=== PATIENT | female | born 1945 | race Caucasian/White ===

== ENCOUNTER 2022-03-29 02:10 | Observation (INO) | payer MEDICARE, OTHER ==
[~2022-03-29] VITALS: Ht 154.9 cm; Wt 58.5 kg
[2022-03-29] VITALS (76 sets, daily range): BP systolic 67–150; BP diastolic 34–108
--- NOTE | 2022-03-29 02:15 | NUR ---
ARRIVAL TRAVELING FROM [place] WHICH IS WHERE SHE LIVES. TRAVELED FOR 7HRS YESTERDAY VIA CAR WITH FAMILY. THEN STOPPED IN [place] TO STAY AT [facility]. STARTED HAVING CHEST PAIN. PHONED FOR EMS. WHEN EMS ARRIVED EKG LOOKED TO BE AFIB RVR HR 160-170 PER EMS. EMS ADMINISTERED METOPROLOL 5MG IV, ASA 324MG PO, NITRO 0.4MG SL. UPON ARRIVAL TO ER HR-145 PER EKG. DENIES CHEST PAIN AT THIS TIME. ALERT AND ORIENTED X3. DAUGHTER AT BEDSIDE. DR. KENNEY AT BEDSIDE. AWAITING ORDERS AT THIS TIME.
[2022-03-29] MEDS ORDERED: CORDARONE ONE (02:35)
[2022-03-29] MEDS ORDERED: LANOXIN ONE (02:36)
[2022-03-29] MEDS ORDERED: NS 1000ML 1,000 ML ONE (02:37)
[2022-03-29] MEDS ORDERED: LANOXIN IV STA (02:48)
[2022-03-29] MEDS ORDERED: CORDARONE IV STA (02:48)
--- NOTE | 2022-03-29 02:50 | PCM.EKG ---
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
--- NOTE | 2022-03-29 02:50 | PCM.EKG ---
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
[2022-03-29] MEDS ORDERED: NEXTERONE 360 MG/200 ML BAG 200 ML IV ONE (02:51)
[2022-03-29 02:57] LABS: BASOPHIL # 0.1 10^3/uL (0.0-0.1); BASOPHIL % 0.8 % (0.0-0.2); EOSINOPHIL # 0.3 10^3/uL (0.0-0.2); EOSINOPHIL % 2.5 % (0.0-5.0); LYMPHOCYTES # 1.88 10^3/uL1 (1.0-4.8); LYMPHOCYTES % 18.2 % (24.0-44.0); MEAN CORP HGB 30.1 pg (26-34); MONOCYTES # 0.8 10^3/uL (0.3-0.8); MONOCYTES % 7.9 % (5.0-12.0); NEUTROPHIL # 7.3 10^3/uL (1.8-7.7); NEUTROPHILS % 70.4 % (41.0-85.0); PLATELET COUNT 277 10^3/uL (150-400); RED CELL DISTRIBUTION WIDTH 12.3 % (11.5-14.5)
[2022-03-29] MEDS ORDERED: NEXTERONE 360 MG/200 ML BAG 200 ML IV STA (02:59)
--- NOTE | 2022-03-29 03:05 | ER.PDOC ---
General Chief Complaint: Chest Pain-Cardiac Nature Stated Complaint: CHEST PAIN Time seen by MD: 03:02 Source: patient Exam Limitations: no limitations History of Present Illness Initial Comments Chest pain that started about 1 hour ago. Patient is traveling from [facility] passing [place]. She was in a motel. When EMS was called, she was given nitro, aspirin and metoprolol because she was found to be in A. fib with RVR. Timing/Duration: 1 hour Severity/Quality: moderate, pressure Radiation: no radiation Activities at Onset: none Nitro Today/Relief: 0.4 mg x 1 Aspirin Today: 325 mg x 1, Provided By EMS Associated Symptoms: shortness of breath Allergies: Coded Allergies: No Known Allergies (Unverified , 03/29/22) Home Meds Reported Medications Metoprolol Succinate (METOPROLOL SUCCINATE) 50 Mg Tab.er.24h, 1 TAB PO DAILY, #30 TAB 5 Refills 03/29/22 Potassium Chloride (POTASSIUM CHLORIDE) 10 Meq Capsule.er, 1 CAP PO DAILY, #90 CAP 1 Refill 03/29/22 Omeprazole (OMEPRAZOLE) 40 Mg Capsule.dr, 1 CAP PO DAILY, #30 CAP 3 Refills 03/29/22 Levothyroxine Sodium (LEVOTHYROXINE SODIUM) 50 Mcg Tablet, 1 TAB PO DAILY, #30 TAB 5 Refills 03/29/22 Amlodipine Besylate (AMLODIPINE BESYLATE) 10 Mg Tablet, 10 MG PO AM, TAB 03/29/22 Atorvastatin 20MG (LIPITOR 20MG) 20 Mg Tablet, 1 TAB PO DAILY, #90 TAB 1 Refill 03/29/22 Furosemide (LASIX) 20 Mg Tablet, 20 MG PO BID, TAB 03/29/22 Aspirin (ASPIRIN EC) 81 Mg Tablet.dr, 81 MG PO DAILY24 for blood thinner 03/29/22 Past Medical History Medical History: cardiac problems, GERD, high cholesterol, hypertension Surgical History: cholecystectomy Family History Significant Family History: no pertinent family hx Social History Smoking: non-smoker Alcohol Use: none Drug Use: none Constitutional: no symptoms reported EENTM: no symptoms reported Respiratory: see HPI Cardiovascular: see HPI Gastrointestinal: no symptoms reported Genitourinary: no symptoms reported All Other Systems: Reviewed and Negative Physical Exam General Appearance: No Apparent Distress, WD/WN HEENT: PERRL/EOMI, Normal ENT Inspection, TMs Normal, Pharynx Normal Neck: Non-Tender, Full Range of Motion, Supple, Normal Inspection Respiratory: chest non-tender, lungs clear, normal breath sounds, no respiratory distress, no accessory muscle use Cardiovascular: Tachycardia, Irregularly Irregular Gastrointestinal: Normal Bowel Sounds, No Organomegaly, No Pulsatile Mass, Non Tender, Soft Extremities: Normal Range of Motion, Non-Tender, Normal Inspection, No Pedal Edema, No Calf Tenderness, Normal Capillary Refill Neurologic/Psychiatric: cleaning associate II-XII NML as Tested, No Motor/Sensory Deficits, Alert, Normal Mood/Affect, Oriented x 3 Skin: Normal Color, Warm/Dry Lymphatic: No Adenopathy Results/Orders Results/Orders Orders - ANNE MARIE MORRIS MD Xr Chest 1v (03/29/22 02:27) Amiodarone Hcl (Cordarone) (03/29/22 02:35) Digoxin (Lanoxin) (03/29/22 02:36) 0.9 % Sodium Chloride (Ns 1000ml) (03/29/22 02:37) Cbc With Auto Diff (03/29/22 02:48) Comprehensive Metabolic Panel (03/29/22 02:48) Creatine Kinase (03/29/22 02:48) Creatine Kinase Mb (03/29/22 02:48) Probnp B-Type Rcp (03/29/22 02:48) PT (03/29/22 02:48) Partial Thromboplastin Time. (03/29/22 02:48) D-Dimer (03/29/22 02:48) Ekg-Routine (03/29/22 02:48) Troponin I High Sensitivity (03/29/22 02:48) Ekg-Routine (03/29/22 02:48) Amiodarone Hcl (Cordarone) (03/29/22 02:48) Digoxin (Lanoxin) (03/29/22 02:48) Amiodarone In Dextrose,Iso-Osm (Nexteron (03/29/22 02:51) Amiodarone In Dextrose,Iso-Osm (Nexteron (03/29/22 02:59) 0.9 % Sodium Chloride (Ns 1000ml) (03/29/22 03:48) Vital Signs Date Time Temp Pulse Resp B/P (MAP) Pulse Ox O2 Delivery O2 Flow Rate FiO2 03/29/22 02:15 98.9 145 20 03/29/22 02:15 98.9 145 20 113/62 (79) 94 Room Air* 0 21 03/29/22 02:15 98.9 145 20 94 Administered Medications Medications (Trade) Dose Ordered Sig/Scar Route PRN Reason Start Time Stop Time Status Last Admin Dose Admin Amiodarone HCl (Cordarone) 150 mg STAT STAT IV 03/29/22 02:48 03/29/22 02:50 DC 03/29/22 02:45 150 MG Amiodarone HCL/ Dextrose 200 ml @ 0 mls/hr STAT IV 03/29/22 02:59 03/29/22 03:00 DC 03/29/22 03:07 34 MLS/HR Digoxin (Lanoxin) 250 mcg STAT STAT IV 03/29/22 02:48 03/29/22 02:50 DC 03/29/22 02:47 250 MCG Sodium Chloride 1,000 ml @ 100 mls/hr Q10H STAT IV 03/29/22 03:48 03/29/22 13:47 03/29/22 02:45 100 MLS/HR Laboratory Tests Test 03/29/22 02:25 White Blood Count 10.3 10^3/uL (4.5-11.0) Red Blood Count 4.55 10^6/uL (4.00-5.20) Hemoglobin 13.7 g/dL (12.0-15.0) Hematocrit 41.3 % (36.0-46.0) Mean Corpuscular Volume 90.8 fL (78-100) Mean Corpuscular Hemoglobin 30.1 pg (26-34) Mean Corpuscular Hemoglobin Concent 33.2 g/dL (33-36.5) Red Cell Distribution Width 12.3 % (11.5-14.5) Platelet Count 277 10^3/uL (150-400) Mean Platelet Volume 11.5 fL (7.8-11.0) H Neutrophils (%) (Auto) 70.4 % (41.0-85.0) Lymphocytes (%) (Auto) 18.2 % (24.0-44.0) L Monocytes (%) (Auto) 7.9 % (5.0-12.0) Neutrophils # (Auto) 7.3 10^3/uL (1.8-7.7) Lymphocytes # (Auto) 1.88 10^3/uL1 (1.0-4.8) Monocytes # (Auto) 0.8 10^3/uL (0.3-0.8) Absolute Immature Granulocyte (auto 0.02 10^3 u/L (0-2) Absolute Eosinophils (auto) 0.3 10^3/uL (0.0-0.2) H Immature Granulocytes % 0.20 % (0.00-0.50) Eosinophils % 2.5 % (0.0-5.0) Basophils % 0.8 % (0.0-0.2) H Basophils # 0.1 10^3/uL (0.0-0.1) Prothrombin Time 9.5 SEC (9.1-11.5) Prothrombin Time INR (Non-Therap) 0.9 Activated Partial Thromboplast Time 21.2 SEC (22.5-33.1) L D-Dimer 0.39 mg/L (0.19-0.49) Sodium Level 140 mmol/L (132-145) Potassium Level 3.8 mmol/L (3.6-5.2) Chloride Level 103.0 mmol/L (96-109) Carbon Dioxide Level 27.1 mmol/L (20.0-32) Anion Gap 13.7 Blood Urea Nitrogen 32 mg/dL (7-18) H Creatinine 1.69 mg/dL (0.59-1.40) H Estimated GFR () 35.7 (>/=60) Est GFR (CKD-EPI)(Non-Afr Romanian) 29.5 (>/=60) BUN/Creatinine Ratio 18.0 Glucose Level 156 mg/dL (70-110) H Calcium Level 9.2 mg/dL (8.4-10.5) Total Bilirubin 0.3 mg/dL (0.2-1.0) Aspartate Amino Transferase (AST) 23 U/L (0-35) Alanine Aminotransferase (ALT) 31 U/L (12-78) Alkaline Phosphatase 225 U/L (50-136) H Total Creatine Kinase 75 U/L (26-192) Creatine Kinase MB 1.9 ng/mL (0.5-3.6) Troponin I High Sensitivity 48 ng/L (0-50) Pro-B-Type Natriuretic Peptide 486 pg/mL (0-450) H Total Protein 7.0 g/dL (6.4-8.2) Albumin 3.6 g/dL (3.4-5.0) Globulin 3.4 Albumin/Globulin Ratio 1.058 EKG/XRAY/CT/US EKG Comments: HR 145, A fib with RVR XRAY: chest (No active disease) ER DEPART Departure Time of Disposition: 03:51 Disposition: 09 ADMITTED INPATIENT Impression: Primary Impression: Atrial fibrillation with RVR Condition: Improved Referrals: PCP,UNKNOWN (PCP) PRIMARY CARE PROVIDER Comments Admitted to Dr. Muñoz Duration or Time Spent with Pa: 60 min Critical Care Note Total Time (mins): 60 ALEXANDRA,ANNE MARIE Feldman MD Mar 29, 2022 03:04
--- NOTE | 2022-03-29 03:07 | NUR ---
AMIODARONE AMIODARONE DRIP STARTED @ 34ML/HR TO 20G TO LEFT AC.
[2022-03-29 03:23] LABS: CARBON DIOXIDE 27.1 mmol/L (20.0-32)
[2022-03-29] MEDS ORDERED: ASPI-929 PO (03:25)
--- NOTE | 2022-03-29 03:32 | DIREP ---
PROCEDURE:CHEST 1 VIEW COMPARISON:None. INDICATIONS:CHEST PAIN FINDINGS: LUNGS/PLEURA:No significant pulmonary parenchymal abnormalities. No effusions. VASCULATURE:Normal. Unremarkable pulmonary vasculature. CARDIAC:Normal. No cardiac silhouette abnormality or cardiomegaly. MEDIASTINUM:Normal. No visible mass or adenopathy. BONES:No acute abnormality. OTHER:Negative. CONCLUSION:No acute cardiopulmonary abnormality. Dictated by: Raffi Esquivel M.D. on 03/29/2022 at 03:30 AM
[2022-03-29] MEDS ORDERED: POTA10CA PO (03:38)
[2022-03-29] MEDS ORDERED: AMLO-170 PO (03:38)
[2022-03-29] MEDS ORDERED: OMEP40CA8 PO (03:38)
[2022-03-29] MEDS ORDERED: METO-237 PO (03:38)
[2022-03-29] MEDS ORDERED: LEVO50TA6 PO (03:38)
[2022-03-29] MEDS ORDERED: ATOR20TA PO (03:38)
[2022-03-29] MEDS ORDERED: FURO-81 PO (03:38)
[2022-03-29] MEDS ORDERED: NS 1000ML 1,000 ML IV STA (03:48)
[2022-03-29] MEDS ORDERED: LOVENOX SQ STA (03:53)
--- NOTE | 2022-03-29 03:56 | NUR ---
Dr. Muñoz called message left for return call for admission.
[2022-03-29] MEDS ORDERED: LOVENOX SQ ONE (04:01)
--- NOTE | 2022-03-29 04:38 | NUR ---
Dr Muñoz returned call admitted pt to ICU for Afib RVR. Family and pt notified of admission to ICU5.
--- NOTE | 2022-03-29 04:50 | NUR ---
ARRIVAL: PT ARRIVED TO ICU VIA STRETCHER. BEDSIDE REPORT RECEIVED FROM SHAWN NUNO. ASSUMED PT CARE. PT TRANSFERRED SELF TO ICU BED. PT ORIENTED TO ICU ENVIRONMENT WITH UNDERSTANDING. PT PLACED ON ICU MONITORS. PT NOTED TO BE IN AFIB. ALL OTHER VSS STABLE AND WNL. PT DENIES ANY PAIN OR NEEDS AT THIS TIME. WILL CONTINUE TO MONITOR.
--- NOTE | 2022-03-29 04:55 | PRM.CONS ---
Subjective Symptoms, Observation: 76-year-old female with history of A. fib, CKD, CHF, HTN, and hypothyroidism presented to the ED via EMS for chest pain. She lives in [place], traveled via car for approximately 7 hours yesterday with her family, then stopped in [place] to stay at a hotel. 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 EKG performed by EMS was positive for A. fib with RVR, rate [id number]. EMS administered Lopressor 5 mg IV x1, aspirin 324 mg p.o. x1, and nitro 0.4 mg SL x1 SUBPOENA SERVER in ED. Upon arrival to ED HR improved to 145 but remained in A. fib with RVR on EKG. Patient stated her chest pain and SOB has resolved. No other symptoms per p atient. Initial vitals: BP 113/62, HR 145, RR 20, SPO2 94% on room air, temp 98.9 F. CBC grossly normal. CMP grossly normal except BUN 32, creatinine 1.69, and glucose 156. Troponin 48, BNP 486. D-dimer 0.39. CXR: No acute cardiopulmonary abnormality. Received amiodarone 150 mg IV x1, digoxin 250 mcg IV x1, lovenox 60mg SQ x 1, and started on amiodarone drip while in the ED. Patient admitted to the ICU 2/2 A. fib with RVR and management of chronic conditions. Objective Exam,Results,Procedures Vital Signs Date Time Temp Pulse Resp B/P (MAP) Pulse Ox O2 Delivery O2 Flow Rate FiO2 03/29/22 03:57 108 20 120/67 (84) 96 Room Air* 0 21 03/29/22 02:15 98.9 Laboratory Tests Test 03/29/22 02:25 White Blood Count 10.3 10^3/uL Red Blood Count 4.55 10^6/uL Hemoglobin 13.7 g/dL Hematocrit 41.3 % Mean Corpuscular Volume 90.8 fL Mean Corpuscular Hemoglobin 30.1 pg Mean Corpuscular Hemoglobin Concent 33.2 g/dL Red Cell Distribution Width 12.3 % Platelet Count 277 10^3/uL Mean Platelet Volume 11.5 fL Neutrophils (%) (Auto) 70.4 % Lymphocytes (%) (Auto) 18.2 % Monocytes (%) (Auto) 7.9 % Neutrophils # (Auto) 7.3 10^3/uL Lymphocytes # (Auto) 1.88 10^3/uL1 Monocytes # (Auto) 0.8 10^3/uL Absolute Immature Granulocyte (auto 0.02 10^3 u/L Absolute Eosinophils (auto) 0.3 10^3/uL Immature Granulocytes % 0.20 % Eosinophils % 2.5 % Basophils % 0.8 % Basophils # 0.1 10^3/uL Prothrombin Time 9.5 SEC Prothrombin Time INR (Non-Therap) 0.9 Activated Partial Thromboplast Time 21.2 SEC D-Dimer 0.39 mg/L Sodium Level 140 mmol/L Potassium Level 3.8 mmol/L Chloride Level 103.0 mmol/L Carbon Dioxide Level 27.1 mmol/L Anion Gap 13.7 Blood Urea Nitrogen 32 mg/dL Creatinine 1.69 mg/dL Estimated GFR () 35.7 Est GFR (CKD-EPI)(Non-Afr [place]) 29.5 BUN/Creatinine Ratio 18.0 Glucose Level 156 mg/dL Calcium Level 9.2 mg/dL Total Bilirubin 0.3 mg/dL Aspartate Amino Transf (AST/SGOT) 23 U/L Alanine Aminotransferase (ALT/SGPT) 31 U/L Alkaline Phosphatase 225 U/L Total Creatine Kinase 75 U/L Creatine Kinase MB 1.9 ng/mL Troponin I High Sensitivity 48 ng/L Pro-B-Type Natriuretic Peptide 486 pg/mL Total Protein 7.0 g/dL Albumin 3.6 g/dL Globulin 3.4 Albumin/Globulin Ratio 1.058 Imaging CXR: No acute cardiopulmonary abnormality. Assessment & Plan Problems/DX: (1) Atrial fibrillation with RVR (2) CKD (chronic kidney disease) (3) CHF (congestive heart failure) (4) HTN (hypertension) (5) Hypothyroidism Provider Note: 76-year-old female with history of A. fib, CKD, CHF, HTN, and hypothyroidism presented to the ED via EMS with 1 hour history of chest pain. Patient lives in [place] and is traveling through with her family. Received Lopressor 5 mg IV x1, aspirin 324 mg p.o. x1, and nitro 0.4 mg sublingual x1 via EMS SUBPOENA SERVER in ED. Patient's chest pain have resolved but she remained in A. fib with RVR. Admitted to the ICU for further management. 1. Atrial fibrillation with RVR. Received amiodarone 150 mg IV x1, digoxin 250 mcg IV x1, and Lovenox 60 mg subcu x1 while in the ED Remained in A. fib with RVR, rate 90s - 120s Was started on amiodarone drip in the ED, continue ICU on telemetry Continue anticoagulation with Lovenox Trend troponin every 6 hours x2 Continue home meds 2. CKD. Creatinine 1.65, this is normal per patient Was started on NS at 100 cc/h in the ED, continue Repeat BMP in a.m. 3. CHF. BNP 486 CXR: No acute cardiopulmonary abnormality Receiving IV fluids as above, monitor for development of edema or SOB Continue home meds 4. HTN. Initial BP 113/62, SBP decreased to 89 likely 2/2 nitro administration. Repeat BP 120/67. Continue to monitor Continue home meds 5. Hypothyroidism. Continue home meds DVT PPx: Lovenox GI PPx: Protonix p.o. CODE STATUS: Full code. Encounter via telemedicine on HIPAA-compliant platform. VTE VTE Risk assessment High Risk (score 4) VTE Risk Score VTE Risk: Score 0-1 = Low Risk (Aggressive mobilization; early ambulation; no VTE prophylaxis required) Score 2: Moderate Risk (Intermittent/Pneumatic Compression Device OR Lovenox/Heparin/Coumadin) Score 3-4: High Risk (Intermittent/Pneumatic Compression Device AND Lovenox/Heparin/Coumadin) Score > or =5: Highest Risk (Intermittent/Pneumatic Compression Device AND Lovenox/Heparin/Coumadin) Antico:Hep/LMWH/Coum/Xarelto: Yes Mechanical device ordered: Yes SHANNON BAILEY MD Mar 29, 2022 04:55
--- NOTE | 2022-03-29 04:55 | NUR ---
ICU TRANSFERRED TO ICU. BEDSIDE REPORT GIVEN TO YECENIA RN AND TONIO WREATH MACHINE TENDER NURSE. ALERT AND ORIENTED X3. AMIODARONE DRIP INFUSING @ 34ML/HR TO 20G TO LEFT AC. DENIES CHEST PAIN @ THIS TIME. HR-120, RR-18, O2 SAT 97% ON ROOM AIR, B/P-120/67, TEMP 98.9.
[2022-03-29] MEDS ORDERED: TYLENOL PO PRN (05:00)
[2022-03-29] MEDS ORDERED: MORPHINE SULFATE IV PRN ×2 (05:00)
[2022-03-29] MEDS ORDERED: NORCO 5MG PO PRN (05:00)
[2022-03-29] MEDS ORDERED: ZOFRAN IV PRN (05:00)
[2022-03-29] MEDS ORDERED: NORVASC PO SCH (05:30)
[2022-03-29] MEDS ORDERED: NEXTERONE 360 MG/200 ML BAG 200 ML IV SCH (05:30)
[2022-03-29] MEDS: SYNTHROID PO SCH (05:44)
[2022-03-29] MEDS: ASPIRIN EC PO SCH (05:44)
--- NOTE | 2022-03-29 06:47 | NUR ---
REPORT TO ONCOMING SHIFT. PT CARE RELINQUISHED.
[2022-03-29] MEDS: KLOR-CON 10 PO SCH (08:33)
[2022-03-29] MEDS: TOPROL XL PO SCH (08:34)
[2022-03-29] MEDS: PROTONIX PO SCH (08:34)
[2022-03-29] MEDS: LIPITOR PO SCH (08:34)
[2022-03-29] MEDS ORDERED: LASIX PO SCH (09:00)
--- NOTE | 2022-03-29 11:07 | NUR ---
DISCHARGE PLANNING-KRISTINE KIP DO-F/U 04/05/22 @1:45PM CM AT BEDSIDE TO VISIT WITH PATIENT REGARDING D/C PLANNING. PT ADVISED CM THAT PATIENT WAS TRAVELING WITH HER DAUGHTER, SON AND DAUGHTER N LAW ON HER WAY TO [place] IN [facility]. PT LIVES AT HOME ALONE IN AN APARTMENT IN [facility]. HER APARTMENT IS HANDICAP ACCESSIBLE. HER DAUGHTER LIVES 2 APARTMENTS DOWN. HER SON AND DAUGHTERS ARE VERY SUPPORTIVE AND CHECK ON HER FREQUENTLY. SHE STATES SHE IS VERY IND AND HAS A VERY ACTIVE LIFESTYLE. SHE DRIVES DAILY AND IS ABLE TO RUN HER OWN ERRANDS AND DRIVE TO HER DOCTOR VISITS. SHE DENIES THE USE OF DME AT HOME. HER PCP IS DO KRISTINE SHIN IN [place], [place]. CHRISTOPHER REQUESTED TO SCHEDULED FOLLOW UP APPOINTMENT AND PATIENT AGREEABLE. CM CONTACTED THE PHYSICIAN OFFICE AND SPOKE TO FERDINAND. CHRISTOPHER SCHEDULED A FOLLOW UP APPOINTMENT FOR 04/05/22 @1:45PM AND NOTIFIED OFFICE THAT PATIENT WOULD NEED A REFERRAL TO BELTING AND WEBBING INSPECTOR FOR OP FOLLOW UP. FERDINAND REQUESTED CLINICAL BE FAXED TO [phone] UPON DISCHARGE OF PATIENT. DISCHARGE GOAL IS FOR PATIENT TO D/C BACK HOME TO ROUTINE CARE WITH HER CHILDREN AND FOLLOW WITH PCP DIRECTED. Addendum: 03/30/22 at 1411 by Imani Mitchell RN - Cabin Furnishings Installer RN CM FAXED CLINICAL PACKET TO KRISTINE SHIN DO @ [phone]. FAX CONFIRMED COMPLETE
--- NOTE | 2022-03-29 11:07 | PCM.HP ---
History of Present Illness Reason for Visit: Palpitations and chest pain History of Present Illness 76-year-old female with history of A. fib, CKD, CHF, HTN, and hypothyroidism presented to the ED via EMS for chest pain. She lives in [place], traveled via car for approximately 7 hours yesterday with her family, then stopped in [place] to stay at a hotel. 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 EKG performed by EMS was positive for A. fib with RVR, rate [id number]. EMS administered Lopressor 5 mg IV x1, aspirin 324 mg p.o. x1, and nitro 0.4 mg SL x1 CHILLING HOOD OPERATOR in ED. Upon arrival to ED HR improved to 145 but remained in A. fib with RVR on EKG. Patient stated her chest pain and SOB has resolved. No other symptoms per patient. Initial vitals: BP 113/62, HR 145, RR 20, SPO2 94% on room air, temp 98.9 F. CBC grossly normal. CMP grossly normal except BUN 32, creatinine 1.69, and glucose 156. Troponin 48, BNP 486. D-dimer 0.39. CXR: No acute cardiopulmonary abnormality. Received amiodarone 150 mg IV x1, digoxin 250 mcg IV x1, lovenox 60mg SQ x 1, and started on amiodarone drip while in the ED. Patient admitted to the ICU 2/2 A. fib with RVR and management of chronic conditions Today at,,Rate is better controlled now patient denies chest pain palpitations now denies fever or chills. Repeat troponin in the 80s. We will consult cardiology and Get 2D echo. Past Medical History Cardiac: AFIB, CHF, HTN Endocrine: Hypothyroidism Review of Systems Cardiovascular: Chest Pain, Palpitations Other Review of other 14 systems negative except was mentioned above. Allergies: Coded Allergies: No Known Allergies (Unverified , 03/29/22) Scheduled Amlodipine Besylate (Amlodipine Besylate), 10 MG PO AM, (Reported) Aspirin (Aspirin Ec), 81 MG PO DAILY24, (Reported) Atorvastatin 20MG (Lipitor 20MG), 1 TAB PO DAILY, (Reported) Furosemide (Lasix), 20 MG PO BID, (Reported) Levothyroxine Sodium (Levothyroxine Sodium), 1 TAB PO DAILY, (Reported) Metoprolol Succinate (Metoprolol Succinate), 1 TAB PO DAILY, (Reported) Omeprazole (Omeprazole), 1 CAP PO DAILY, (Reported) Potassium Chloride (Potassium Chloride), 1 CAP PO DAILY, (Reported) Exam Vital Signs Vital Signs Date Time Temp Pulse Resp B/P (MAP) Pulse Ox O2 Delivery O2 Flow Rate FiO2 03/29/22 10:30 65 18 116/55 (75) 94 Room Air* 0 21 03/29/22 07:00 98.0 General Appearance: Alert, Oriented X3, mild distress HEENT: Atraumatic, PERRLA Respiratory: Clear to auscultation, Normal air movement Cardiovascular: Other (Irregular) Abdominal: Normal bowel sounds, Soft, No tenderness Extremities: No clubbing, No cyanosis Skin: No lesions Neuro: Normal speech, Normal tone Psych/Mental Status: Mental status NL, Mood NL Assessment/Plan Assessment/Plan Assessment/Plan 76-year-old female with history of A. fib, CKD, CHF, HTN, and hypothyroidism presented to the ED via EMS for chest pain. She lives in [place], traveled via car for approximately 7 hours yesterday with her family, then stopped in [place] to stay at a hotel. 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 EKG performed by EMS was positive for A. fib with RVR, rate [id number]. EMS administered Lopressor 5 mg IV x1, aspirin 324 mg p.o. x1, and nitro 0.4 mg SL x1 CHILLING HOOD OPERATOR in ED. Upon arrival to ED HR improved to 145 but remained in A. fib with RVR on EKG. Patient stated her chest pain and SOB has resolved. No other symptoms per patient. Initial vitals: BP 113/62, HR 145, RR 20, SPO2 94% on room air, temp 98.9 F. CBC grossly normal. CMP grossly normal except BUN 32, creatinine 1.69, and glucose 156. Troponin 48, BNP 486. D-dimer 0.39. CXR: No acute cardiopulmonary abnormality. Received amiodarone 150 mg IV x1, digoxin 250 mcg IV x1, lovenox 60mg SQ x 1, and started on amiodarone drip while in the ED. Patient admitted to the ICU 2/ A. fib with RVR and management of chronic conditions Today at,,Rate is better controlled now patient denies chest pain palpitations now denies fever or chills. Repeat troponin in the 80s. We will consult cardiology and Get 2D echo. Plan Patient admitted to ICU started on IV amiodarone drip Continue anticoagulation 2D echo Mural Painter consulted for evaluation further recommendations Reconcile home meds DVT prophylaxis Expect length of stay more than 1 midnight Case discussed with patient and REAL ESTATE LEGAL ASSISTANT Problems: (1) Atrial fibrillation with RVR Status: Acute ICD Code: I48.91 - Unspecified atrial fibrillation SNOMED: 124291775208975 (2) HTN (hypertension) Status: Chronic ICD Code: I10 - Essential (primary) hypertension SNOMED: 46705964 (3) CKD (chronic kidney disease) Status: Chronic ICD Code: N18.9 - Chronic kidney disease, unspecified SNOMED: 674388302 (4) CHF (congestive heart failure) Status: Chronic ICD Code: I50.9 - Heart failure, unspecified SNOMED: 21491592 (5) Hypothyroidism Status: Chronic ICD Code: E03.9 - Hypothyroidism, unspecified SNOMED: 92712082 ARLENE SANDOVAL MD Mar 29, 2022 11:07
[2022-03-29] MEDS: LOVENOX SQ SCH (16:11)
--- NOTE | 2022-03-29 17:43 | PCM.ECHO ---
APPROVED REPORT EXAM: Comprehensive 2D, Doppler, and color-flow Echocardiogram. Patient Location: IN-PATIENT Indications Atrial Fibrillation Chest Pain Elevated troponin 2D Dimensions LVOT Diameter 2.05 (1.8-2.4cm) LVEF(%) 67.49 (>50%) M-Mode Dimensions RVDd 0.60 (2.1-3.2cm) Left Atrium(MM) 3.35 (2.5-4.0cm) IVSd 1.10 (0.7-1.1cm) Aortic Root 2.90 (2.2-3.7cm) LVDd 5.40 (4.0-5.6cm) Aortic Cusp Exc 1.30 (1.5-2.0cm) PWd 0.55 (0.7-1.1cm) MV EPSS 0.38 (<0.5cm) IVSs 1.65 cm FS (%) 36.05 % LVDs 3.45 (2.0-3.8cm) ESV(Teich) 49.48 ml PWs 1.45 cm LVEF(%) 65.20 (>50%) Volumes Biplane 2D LV Volumes Biplane 2D LA Volumes LVEDv A4C 82.61 mL LA ESV Index LVESv A4C 26.71 mL Aortic Valve AoV Peak Del. 1.35 m/s AoV VTI 28.70 cm AO Peak GR. 7.40 mmHg AO Mean GR. 4.40 mmHg LVOT VTI 27.92 cm LVOT Peak Del. 1.05 m/s LEN(VTI)/BSA 3.20 cm2/m2 LEN (VTI) 3.20 cm2 Mitral Valve MV E Velocity 0.95m/s MR Peak Gr. 71.85mmHg MV A Velocity 0.80m/s TDI Lateral E' P. V 0.08m/s Medial E' P. V 0.14m/s Pulmonary Valve PV Peak Velocity 0.80m/s PV Peak Grad. 2.60mmHg RVOT VTI 20.38cm Tricuspid Valve TR P. Velocity 2.40m/s RAP ESTIMATE 10.00mmHg TR Peak Gr. 23.09mmHg RVSP 33.09mmHg LEFT VENTRICLE The left ventricle is normal size. The left ventricular systolic function is normal. The left ventricular ejection fraction is within the normal range. There is normal left ventricular wall thickness. There is normal LV segmental wall motion. Pseudonormalized E/A reversal consistent with Stage 2 Diastolic Dysfunction. There is no ventricular septal defect visualized. No left ventricle thrombus noted on this study. LVEF is 65%. RIGHT VENTRICLE The right ventricle is normal size. The right ventricular systolic function is normal. There is normal right ventricular wall thickness. ATRIA Left atrium is moderately dilated. Right atrium is moderately dilated. The interatrial septum is intact with no evidence for an atrial septal defect. AORTIC VALVE The aortic valve is normal in structure. There is no aortic valvular stenosis. No aortic regurgitation is present. There is no aortic valvular vegetation. MITRAL VALVE The mitral valve is normal in structure. Moderate mitral annular calcification. There is no mitral valve stenosis. Moderate mitral regurgitation. There is no evidence of mitral valve vegetations. TRICUSPID VALVE The tricuspid valve is normal in structure. There is no tricuspid valve stenosis. Moderate to severe tricuspid regurgitation Moderate pulmonary hypertension. There is no tricuspid valve vegetations. PULMONIC VALVE Pulmonic valve is not well visualized. There is no pulmonic valvular stenosis. There is no pulmonic valvular regurgitation. GREAT VESSELS The aortic root is normal in size. Pulmonary artery is not well visualized. Aortic arch is not well visualized. The IVC is normal in size and collapses >50% with inspiration. PERICARDIUM There is no pericardial effusion. There is no pleural effusion. Other Information Study Quality: Fair <Conclusion> The left ventricular systolic function is normal. LVEF is 65%. Pseudonormalized E/A reversal consistent with Stage 2 Diastolic Dysfunction. Left atrium is moderately dilated. Right atrium is moderately dilated. Moderate mitral regurgitation. Moderate to severe tricuspid regurgitation Moderate pulmonary hypertension. Electronically signed by : NATHANIEL RODGERS. 03/29/2022 17:42:46
--- NOTE | 2022-03-29 18:50 | NUR ---
BEDSIDE REPORT RECEIVED FROM SHAWN WILSON. PT DENIES ANY NEEDS OR PAIN AT THIS TIME. ASSUMED PT CARE.
[2022-03-29] MEDS ORDERED: ROPI1TAB4 PO (21:07)
[2022-03-29] MEDS ORDERED: GABA100C7 PO (21:07)
[2022-03-29] MEDS ORDERED: METF500T17 PO (21:07)
[2022-03-29] MEDS ORDERED: OLME20TA72 PO (21:07)
[2022-03-29] MEDS ORDERED: PROP80CA3 PO (21:07)
[2022-03-29] MEDS ORDERED: CILO100T PO (21:07)
[2022-03-30] VITALS (46 sets, daily range): BP systolic 100–156; BP diastolic 36–93
[2022-03-30] MEDS: LOVENOX SQ SCH (04:00)
[2022-03-30] MEDS ORDERED: LOVENOX SQ ONE ×2 (04:35→04:37)
[2022-03-30 04:41] LABS: BASOPHIL # 0.1 10^3/uL (0.0-0.1); EOSINOPHIL # 0.3 10^3/uL (0.0-0.2); EOSINOPHIL % 4.5 % (0.0-5.0); LYMPHOCYTES # 1.65 10^3/uL1 (1.0-4.8); LYMPHOCYTES % 27.3 % (24.0-44.0); MEAN CORP HGB 30.2 pg (26-34); MONOCYTES # 0.6 10^3/uL (0.3-0.8); MONOCYTES % 9.9 % (5.0-12.0); NEUTROPHIL # 3.5 10^3/uL (1.8-7.7); NEUTROPHILS % 57.3 % (41.0-85.0); PLATELET COUNT 240 10^3/uL (150-400); RED CELL DISTRIBUTION WIDTH 12.2 % (11.5-14.5)
[2022-03-30 04:54] LABS: CARBON DIOXIDE 26.1 mmol/L (20.0-32)
[2022-03-30] MEDS: SYNTHROID PO SCH (05:53)
[2022-03-30] MEDS: ASPIRIN EC PO SCH (05:53)
--- NOTE | 2022-03-30 07:00 | NUR ---
BEDSIDE REPORT TO ONCOMING SHIFT. PT CARE RELINQUISHED.
[2022-03-30] MEDS: KLOR-CON 10 PO SCH (09:40)
[2022-03-30] MEDS: LIPITOR PO SCH (09:40)
[2022-03-30] MEDS: TOPROL XL PO SCH (09:40)
[2022-03-30] MEDS: PROTONIX PO SCH (09:40)
--- NOTE | 2022-03-30 09:50 | NUR ---
MD rounds: Dr. Henson @ bedside w/patient and family. Instructed pt on f/u w/logging superintendent and pcp w/arrival to home. Pt is alert and oriented x4, voices understanding. Discharge orders entered per MD.
[2022-03-30] MEDS ORDERED: APIX2.5T PO (11:09)
--- NOTE | 2022-03-30 11:29 | NUR ---
NEW MEDICATIONS CALLED IN TO [facility] - SPOKE TO RESHA - ELIQUIS 2.5MG PO BID X30 DAYS #60 - NO REFILLLS
--- NOTE | 2022-03-30 11:47 | PRM.DC ---
Discharge Summary Reason for Visit: Palpitations and chest pain Hospital Course 76-year-old female with history of A. fib, CKD, CHF, HTN, and hypothyroidism presented to the ED via EMS for chest pain. She lives in [place], traveled via car for approximately 7 hours yesterday with her family, then stopped in [place] to stay at a hotel. 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 EKG performed by EMS was positive for A. fib with RVR, rate [id number]. EMS administered Lopressor 5 mg IV x1, aspirin 324 mg p.o. 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 Upon arrival to ED HR improved to 145 but remained in A. fib with RVR on EKG. Patient stated her chest pain and SOB has resolved. No other symptoms per patient. Initial vitals: BP 113/62, HR 145, RR 20, SPO2 94% on room air, temp 98.9 F. CBC grossly normal. CMP grossly normal except BUN 32, creatinine 1.69, and glucose 156. Troponin 48, BNP 486. D-dimer 0.39. CXR: No acute cardiopulmonary abnormality. Received amiodarone 150 mg IV x1, digoxin 250 mcg IV x1, lovenox 60mg SQ x 1, and started on amiodarone drip while in the ED. Patient admitted to the ICU 2/2 A. fib with RVR and management of chronic conditions Patient converted to sinus rhythm. Patient started back on home med Toprol 50 mg. Today patient is feeling much better. Denies chest pain. Wants to go home. I discussed the case with our decorating consultant who reviewed patient echo which showed normal ejection fraction but dilated right and left atrium. He advised to start the patient on Eliquis 2.5 mg p.o. twice daily and continues [place]. Patient strongly advised to establish care with decorating consultant as soon as possible. Patient to see her primary care physician as early as possible. The bedside. Patient will be discharged home. Exam/Vitals Vital Signs Date Time Temp Pulse Resp B/P (MAP) Pulse Ox O2 Delivery O2 Flow Rate FiO2 03/30/22 11:00 68 34 130/59 (82) 98 Room Air* 0 21 03/30/22 06:45 98.7 General: Alert, Oriented X3, moderate distress HEENT: Atraumatic, PERRLA Neck: Supple, No JVD Lungs: Clear to auscultation, Normal air movement Heart: Regular rate, Normal S1, Normal S2 Abdomen: Normal bowel sounds, Soft Extremities: No clubbing, No cyanosis Skin: No significant lesion Neuro: Normal speech, Normal tone Psych/Mental Status: Mental status NL, Mood NL Scheduled Apixaban (Eliquis), 2.5 MG PO BID Aspirin (Aspirin Ec), 81 MG PO DAILY24, (Reported) Atorvastatin 20MG (Lipitor 20MG), 1 TAB PO DAILY, (Reported) Furosemide (Lasix), 20 MG PO BID, (Reported) Levothyroxine Sodium (Levothyroxine Sodium), 1 TAB PO DAILY, (Reported) Metoprolol Succinate (Metoprolol Succinate), 1 TAB PO DAILY, (Reported) Omeprazole (Omeprazole), 1 CAP PO DAILY, (Reported) Potassium Chloride (Potassium Chloride), 1 CAP PO DAILY, (Reported) Discontinued Medications Amlodipine Besylate (Amlodipine Besylate), 10 MG PO AM, (Reported) Discontinued Reason: HOLD Cilostazol (Cilostazol), 1 TAB PO BID, (Reported) Discontinued Reason: Discontinue Gabapentin (Gabapentin), 3 CAP PO TID, (Reported) Discontinued Reason: Discontinue Metformin Hcl (Metformin Hcl), 1,000 MG PO BID, (Reported) Discontinued Reason: Discontinue Olmesartan Medoxomil (Benicar), 1 TAB PO QD, (Reported) Discontinued Reason: Discontinue Propranolol Hcl (Propranolol Hcl), 1 CAP PO BID, (Reported) Discontinued Reason: Discontinue Ropinirole Hcl (Ropinirole Hcl), 1 MG PO TID, (Reported) Discontinued Reason: Discontinue Sepsis Evaluation @ Discharge 03/30/22 10:00 Plan Problems: (1) Atrial fibrillation with RVR Status: Resolved ICD Code: I48.91 - Unspecified atrial fibrillation SNOMED: 633948553731745 (2) CKD (chronic kidney disease) Status: Chronic ICD Code: N18.9 - Chronic kidney disease, unspecified SNOMED: 386915062 (3) HTN (hypertension) Status: Chronic ICD Code: I10 - Essential (primary) hypertension SNOMED: 43550009 (4) Hypothyroidism Status: Chronic ICD Code: E03.9 - Hypothyroidism, unspecified SNOMED: 13918258 Plan 76-year-old female with history of A. fib, CKD, CHF, HTN, and hypothyroidism presented to the ED via EMS for chest pain. She lives in [place], traveled via car for approximately 7 hours yesterday with her family, then stopped in [place] to stay at a hotel. 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 EKG performed by EMS was positive for A. fib with RVR, rate [id number]. EMS administered Lopressor 5 mg IV x1, aspirin 324 mg p.o. 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 Upon arrival to ED HR improved to 145 but remained in A. fib with RVR on EKG. Patient stated her chest pain and SOB has resolved. No other symptoms per patient. Initial vitals: BP 113/62, HR 145, RR 20, SPO2 94% on room air, temp 98.9 F. CBC grossly normal. CMP grossly normal except BUN 32, creatinine 1.69, and glucose 156. Troponin 48, BNP 486. D-dimer 0.39. CXR: No acute cardiopulmonary abnormality. Received amiodarone 150 mg IV x1, digoxin 250 mcg IV x1, lovenox 60mg SQ x 1, and started on amiodarone drip while in the ED. Patient admitted to the ICU 2/2 A. fib with RVR and management of chronic conditions Patient converted to sinus rhythm. Kidney function improved, latest creatinine 1 Patient started back on home med Toprol 50 mg. Today patient is feeling much better. Denies chest pain. Wants to go home. I discussed the case with our decorating consultant who reviewed patient echo which showed normal ejection fraction but dilated right and left atrium. He advised to start the patient on Eliquis 2.5 mg p.o. twice daily and continues [place]. Patient strongly advised to establish care with decorating consultant as soon as possible. Patient to see her primary care physician as early as possible. The bedside. Patient will be discharged home. ARLENE SANDOVAL MD Mar 30, 2022 11:47
--- NOTE | 2022-03-30 12:19 | NUR ---
DISCHARGE EDUCATION SESSION HELD WITH PT AND FAMILY. PT DENIES PAIN AND NO APPARENT ACUTE DISTRESS NOTED. FOLLOW UP INSTRUCTIONS AND NEW/CURRENT MEDICATION EDUCATION ADDRESSED WITH PT AND FAMILY, VERBALIZED UNDERSTANDING. PT LEFT UNIT VIA WHEELCHAIR ESCORTED BY MESSI Bettencourt US. LEFT WITH FAMILY IN PERSONAL VEHICLE. RELINQUISHED CARE.
== END 2022-03-30 12:00 | disposition home or self-care (01) ==
LOC: ER 02:10 → EDBD 02:10 → INTOOBSV 03:57 → ICU 03:57
PROVIDERS: ADMIT Family Medicine; ATTEND Family Medicine
DX: I48.20 Chronic atrial fibrillation, unspecified (principal); I13.0 Hypertensive heart and chronic kidney disease with heart failure and stage 1 through stage 4 chronic kidney disease, or unspecified chronic kidney disease; I50.9 Heart failure, unspecified; N18.9 Chronic kidney disease, unspecified; E03.9 Hypothyroidism, unspecified; K21.9 Gastro-esophageal reflux disease without esophagitis; E78.00 Pure hypercholesterolemia, unspecified; Z79.899 Other long term (current) drug therapy
CPT/HCPCS: 96372 ×2; 99291; 96365; 96366; 96375; 96376; 71045; 80053; 85025 ×2; 36415 ×2; 85379; 84484; 82553; 83880; 82310; 82550; 85610; 85730; 83735; 93005; 93306; 80048; G0378 ×3; J0282; J7030; J1650 ×4; J3490 ×3; J1160